=== PATIENT | female | born 1970 | race Hispanic/Latino ===

== ENCOUNTER 2020-09-19 08:27 | Outpatient (CLI) | payer OTHER | END 2020-09-19 08:28 | disposition home or self-care (01) | LOC: MADULT 08:27 | PROVIDERS: ATTEND Family Medicine | DX: N28.1 Cyst of kidney, acquired (principal) | CPT/HCPCS: 76770 ==

== ENCOUNTER 2020-10-22 08:29 | Outpatient (CLI) | payer OTHER | END 2020-10-22 08:30 | disposition home or self-care (01) | LOC: MADLAB 08:29 | PROVIDERS: ATTEND Family Medicine | DX: N39.46 Mixed incontinence (principal) | CPT/HCPCS: 87077; 87086; 87186 ==

== ENCOUNTER 2021-03-29 22:24 | Emergency (ER) | payer OTHER | END 2021-03-30 00:47 | disposition home or self-care (01) | LOC: MADERS 22:24 | DX: M62.838 Other muscle spasm (principal); V43.62XA Car passenger injured in collision with other type car in traffic accident, initial encounter; Y92.410 Unspecified street and highway as the place of occurrence of the external cause | CPT/HCPCS: 70450; 72125; 72128; 72131 ==

== ENCOUNTER 2021-04-07 12:20 | Outpatient (CLI) | payer OTHER | END 2021-04-07 12:21 | disposition home or self-care (01) | LOC: MADLAB 12:20 → MADRAD 12:21 | PROVIDERS: ATTEND Family Medicine | DX: M25.572 Pain in left ankle and joints of left foot (principal) ==